=== PATIENT | female | born 1965 | race Asian ===

== ENCOUNTER 2023-12-13 07:55 | Inpatient (IN) | payer MEDICAID ==
[~2023-12-13] VITALS: Ht 157.5 cm; Wt 111.1 kg
[2023-12-13] VITALS (21 sets, daily range): BP systolic 105–122; BP diastolic 43–59; TEMP 97.2–98.2; O2SAT 100
[2023-12-13 08:29] LABS: BASOPHILS % (AUTO) 0.4 % (0.0-2.0); EOSINOPHILS # (AUTO) 0.1 K/uL (0.0-0.7); EOSINOPHILS % (AUTO) 1.6 % (0.0-6.0); HEMATOCRIT 29 % (33-45); HEMOGLOBIN 8.9 g/dL (11.5-14.8); LYMPHOCYTES # (AUTO) 1.5 K/uL (0.8-4.8); LYMPHOCYTES % (AUTO) 19.7 % (20.0-44.0); MEAN CORPUSCULAR HEMOGLOBIN 28 PG (26.0-33.0); MEAN CORPUSCULAR HGB CONC 31 g/dl (31.0-36.0); MEAN CORPUSCULAR VOLUME 91 fL (82-100); MONOCYTES # (AUTO) 0.7 K/uL (0.1-1.30); MONOCYTES % (AUTO) 9.4 % (2.0-12.0); NEUTROPHILS # (AUTO) 5.3 K/uL (1.8-8.9); NEUTROPHILS % (AUTO) 68.9 % (43.0-81.0); PLATELET COUNT (AUTO) 197 K/uL (150-450); RED BLOOD CELL COUNT(AUTO) 3.14 MIL/uL (4.0-5.2); RED CELL DISTRIBUTION WIDTH 15.1 % (11.5-15.0); WHITE BLOOD COUNT (AUTO) 7.7 K/uL (4.3-11.0)
[2023-12-13] MEDS ORDERED: methylPREDNISolone SOD SUCC 125 MG/2ML VIAL ONE (08:41)
[2023-12-13] MEDS: methylPREDNISolone SOD SUCC 125 MG/2ML VIAL IV ONE (08:44)
[2023-12-13] MEDS ORDERED: IPRATROPIUM NEB FS 0.5 MG/2.5 ML AMPUL.NEB ONE (08:44)
[2023-12-13] MEDS ORDERED: ALBUTEROL FS 2.5 MG/3 ML VIAL.NEB ONE (08:44)
[2023-12-13] MEDS: ALBUTEROL FS 2.5 MG/3 ML VIAL.NEB NEB ONE ×2 (08:45)
[2023-12-13] MEDS: IPRATROPIUM NEB FS 0.5 MG/2.5 ML AMPUL.NEB NEB ONE (08:45)
[2023-12-13 08:51] LABS: CALCIUM, SERUM 9.1 mg/dL (8.5-10.1); CARBON DIOXIDE 36 mmol/L (21-32); CHLORIDE 101 mmol/L (98-107); CREATININE 0.9 mg/dL (0.6-1.3); GLUCOSE 159 mg/dL (74-106); POTASSIUM 4.9 mmol/L (3.5-5.1); SODIUM SERUM 140 mmol/L (136-145); UREA NITROGEN, BLOOD 21 mg/dL (7-18)
[2023-12-13 08:56] LABS: ALANINE AMINOTRANSFERASE 19 U/L (12-78); ALBUMIN 2.8 g/dL (3.4-5.0); ALKALINE PHOSPHATASE 131 U/L (46-116); ASPARTATE AMINOTRANSFERASE 12 U/L (15-37); BILIRUBIN,DIRECT 0.1 mg/dL (0.0-0.2); BILIRUBIN,TOTAL 0.2 mg/dL (0.2-1.0); TOTAL PROTEIN, SERUM 6.9 g/dL (6.4-8.2)
[2023-12-13 08:57] LABS: LACTIC ACID 0.5 mmol/L (0.4-2.0)
[2023-12-13] MEDS: CEFTRIAXONE 1 G in IV D5W 50 ML IV ONE (09:01)
[2023-12-13 09:31] LABS: ABG BASE EXCESS 3.6 mmol/L; ABG OXYGEN SATURATION 88.5 % (92.0-98.5); ABG PCO2 78.2 mmHg (35.0-45.0); ABG PH 7.236 (7.350-7.450); ABG PO2 56.6 mmHg (75.0-100.0); ABG TOTAL HEMOGLOBIN 9.7 G/dL (12.0-16.0); COHb 0.2 % (0.5-1.5); MetHb 0.2 % (0.0-1.5); O2Hb 88.1 % (94.0-97.0); SITE, ABG Right Radial; VENT MODE, BG 5LPM NASAL CANNULA
[2023-12-13] MEDS ORDERED: FUROSEMIDE 20 MG/2 ML VIAL ONE (09:41)
[2023-12-13] MEDS: FUROSEMIDE 20 MG/2 ML VIAL IV ONE (09:47)
[2023-12-13] MEDS ORDERED: INSULIN REGULAR, HUMAN 100 UNIT/ML 3 ML VIAL SQ PRN (10:00)
[2023-12-13] MEDS ORDERED: ACETAMINOPHEN 325 MG TABLET PO PRN (10:00)
[2023-12-13] MEDS ORDERED: ONDANSETRON HCL/PF 4 MG/2 ML VIAL IVP PRN (10:00)
[2023-12-13] MEDS ORDERED: ZOLPIDEM TARTRATE 5 MG TABLET PO PRN (10:00)
[2023-12-13] MEDS ORDERED: DEXTROSE 50%-WATER 50 ML DISP.SYRIN IV PRN (10:00)
[2023-12-13] MEDS ORDERED: IPRATROPIUM NEB FS 0.5 MG/2.5 ML AMPUL.NEB NEB PRN (10:00)
[2023-12-13] MEDS ORDERED: MAG HYDROX/AL HYDROX/SIMETH 30 ML UDC PO PRN (10:00)
[2023-12-13] MEDS ORDERED: MAGNESIUM HYDROXIDE 30 ML UDC PO PRN (10:00)
[2023-12-13 11:05] LABS: ABG BASE EXCESS 3.2 mmol/L; ABG PCO2 81.7 mmHg (35.0-45.0); ABG PH 7.217 (7.350-7.450); ABG PO2 64.2 mmHg (75.0-100.0); ABG TOTAL HEMOGLOBIN 9.9 G/dL (12.0-16.0); MetHb 0.4 % (0.0-1.5); O2Hb 90.6 % (94.0-97.0); SITE, ABG Right Radial
[2023-12-13] MEDS ORDERED: ALBUTEROL FS 2.5 MG/0.5 ML VIAL.NEB ONE (12:51)
[2023-12-13] MEDS ORDERED: NOREPINEPHRINE 8 MG in IV D5W 242 ML IV PRN ×2 (14:00→15:00)
[2023-12-13] MEDS ORDERED: PROPOFOL 100 ML ONE (14:03)
[2023-12-13] MEDS: ALBUTEROL FS 2.5 MG/0.5 ML VIAL.NEB NEB SCH (14:15)
[2023-12-13] MEDS: methylPREDNISolone SOD SUCC 40 MG/ML VIAL IV SCH (16:09)
[2023-12-13 16:28] LABS: ABG BASE EXCESS 2.6 mmol/L; ABG PCO2 89.5 mmHg (35.0-45.0); ABG PO2 105.6 mmHg (75.0-100.0); ABG TOTAL HEMOGLOBIN 10.1 G/dL (12.0-16.0); COHb 0.3 % (0.5-1.5); MetHb 0.5 % (0.0-1.5); O2Hb 96.2 % (94.0-97.0); SITE, ABG Right Radial; VENT MODE, BG BIPAP 20/8 70% FIO2
[2023-12-13] MEDS: PROPOFOL 100 ML IV PRN (16:42)
[2023-12-13] MEDS: BLOOD SUGAR DIAGNOSTIC 1 EACH STRIP IN SCH (18:36)
[2023-12-13] MEDS: SODIUM BICARBONATE SYR 50 MEQ/50 ML DISP.SYRIN IV ONE (18:40)
[2023-12-13] MEDS: VANCOMYCIN HCL 1.25 GM in IV D5W 250 ML IV ONE (18:53)
[2023-12-13] MEDS ORDERED: CRAN425C6 PO (21:11)
[2023-12-13] MEDS ORDERED: INSU100V42 SQ (21:11)
[2023-12-13] MEDS ORDERED: MODAFINIL PO (21:11)
[2023-12-13] MEDS ORDERED: MULT-213 PO (21:11)
[2023-12-13] MEDS ORDERED: MAGN400O6 PO (21:11)
[2023-12-13] MEDS ORDERED: ATOR20TA PO (21:11)
[2023-12-13] MEDS ORDERED: DEXTROSE PO (21:11)
[2023-12-13] MEDS ORDERED: ALBU2.5V38 IH (21:11)
[2023-12-13] MEDS: CEFEPIME HCL 2 GM in IV D5W 100 ML IV SCH (21:11)
[2023-12-13] MEDS ORDERED: SENN-261 PO (21:11)
[2023-12-13] MEDS ORDERED: DOCU-141 PO (21:11)
[2023-12-13] MEDS ORDERED: ACET-868 PO (21:11)
[2023-12-13] MEDS ORDERED: HYDR-4076 PO (21:11)
[2023-12-13] MEDS ORDERED: ASCO-352 PO (21:11)
[2023-12-13] MEDS ORDERED: FURO40TA5 PO (21:11)
[2023-12-13] MEDS ORDERED: PANT40TA49 PO (21:11)
[2023-12-13] MEDS ORDERED: METF-440 PO (21:11)
[2023-12-13] MEDS ORDERED: FOLI0.4T6 PO (21:11)
[2023-12-13] MEDS ORDERED: GLUC1KIT IM (21:11)
[2023-12-13] MEDS ORDERED: ONDA-97 PO (21:11)
[2023-12-13] MEDS ORDERED: INSU100V7 SQ (21:11)
[2023-12-13] MEDS ORDERED: ACET-2605 PO (21:11)
[2023-12-13] MEDS ORDERED: ENOX40DI SQ (21:11)
[2023-12-13] MEDS ORDERED: ASPI-1169 PO (21:11)
[2023-12-13] MEDS ORDERED: FERR325T24 PO (21:11)
[2023-12-13] MEDS ORDERED: CHOL100043 PO (21:11)
[2023-12-13] MEDS ORDERED: BLOO-668 IN (21:11)
[2023-12-14] VITALS (64 sets, daily range): BP systolic 85–156; BP diastolic 24–122; TEMP 98.5–99.5; O2SAT 91–100
[2023-12-14 04:17] LABS: BASOPHILS % (AUTO) 0.1 % (0.0-2.0); EOSINOPHILS # (AUTO) 0.1 K/uL (0.0-0.7); EOSINOPHILS % (AUTO) 1.1 % (0.0-6.0); HEMATOCRIT 29 % (33-45); HEMOGLOBIN 9.1 g/dL (11.5-14.8); LYMPHOCYTES # (AUTO) 0.9 K/uL (0.8-4.8); LYMPHOCYTES % (AUTO) 10.2 % (20.0-44.0); MEAN CORPUSCULAR HEMOGLOBIN 29 PG (26.0-33.0); MEAN CORPUSCULAR HGB CONC 31 g/dl (31.0-36.0); MEAN CORPUSCULAR VOLUME 93 fL (82-100); MONOCYTES # (AUTO) 0.4 K/uL (0.1-1.30); MONOCYTES % (AUTO) 4.6 % (2.0-12.0); NEUTROPHILS # (AUTO) 7.4 K/uL (1.8-8.9); PLATELET COUNT (AUTO) 198 K/uL (150-450); RED BLOOD CELL COUNT(AUTO) 3.16 MIL/uL (4.0-5.2); RED CELL DISTRIBUTION WIDTH 15.4 % (11.5-15.0); WHITE BLOOD COUNT (AUTO) 8.9 K/uL (4.3-11.0)
[2023-12-14 04:25] LABS: CALCIUM, SERUM 9.1 mg/dL (8.5-10.1); CREATININE 1.2 mg/dL (0.6-1.3); PHOSPHORUS 3.3 mg/dL (2.5-4.9); POTASSIUM 4.5 mmol/L (3.5-5.1)
[2023-12-14 04:40] LABS: THYROID STIMULATING HORMONE 1.139 uIU/mL (0.358-3.74)
[2023-12-14 06:14] LABS: ABG OXYGEN SATURATION 96.6 % (92.0-98.5); ABG PH 7.486 (7.350-7.450); ABG PO2 82.5 mmHg (75.0-100.0); ABG TOTAL HEMOGLOBIN 9.7 G/dL (12.0-16.0); AaDO2 226.8 mmHg; MetHb 0.1 % (0.0-1.5); O2Hb 96.5 % (94.0-97.0); PEEP,BG 5 cm H2O; SITE, ABG Right Brachial; VT, ABG 450 mL
[2023-12-14] MEDS ORDERED: SUCCINYLCHOLINE CHLORIDE 20 MG/ML VIAL IV ONE (07:20)
[2023-12-14] MEDS ORDERED: ETOMIDATE 2 MG/ML VIAL IV ONE (07:20)
[2023-12-14] MEDS: VANCOMYCIN 1 GM in IV D5W 250ml IV SCH (08:00)
[2023-12-14] MEDS ORDERED: ACETAMINOPHEN 650 MG/SUPP.RECT RC PRN (08:30)
[2023-12-14] MEDS ORDERED: DEXTROSE 50%-WATER 50 ML DISP.SYRIN IV PRN ×2 (08:30→21:30)
[2023-12-14] MEDS: BLOOD SUGAR DIAGNOSTIC 1 EACH STRIP IN SCH ×2 (09:14→21:48)
[2023-12-14] MEDS: INSULIN REGULAR, HUMAN 100 UNIT/ML 3 ML VIAL SQ PRN ×2 (09:16→21:49)
[2023-12-14 09:46] LABS: ABG BASE EXCESS 4.8 mmol/L; ABG OXYGEN SATURATION 94.5 % (92.0-98.5); ABG PCO2 50.6 mmHg (35.0-45.0); ABG PH 7.398 (7.350-7.450); ABG PO2 76.2 mmHg (75.0-100.0); ABG TOTAL HEMOGLOBIN 10.3 G/dL (12.0-16.0); AaDO2 150.8 mmHg; COHb 0.3 % (0.5-1.5); MetHb 0.2 % (0.0-1.5); PEEP,BG 5 cm H2O; SITE, ABG Right Radial; VENT MODE, BG SIMV 4 / PS 15; VT, ABG 450 mL
[2023-12-14] MEDS: PANTOPRAZOLE 40 MG VIAL IV SCH (09:50)
[2023-12-14] MEDS: ENOXAPARIN SODIUM 40 MG/0.4 ML DISP.SYRIN SQ SCH (09:54)
[2023-12-14] MEDS ORDERED: DC PROPOFOL WHEN EXTUBATED XX PRN (10:00)
[2023-12-14] MEDS: CEFTRIAXONE 1 G in IV D5W 50 ML IV SCH (10:08)
[2023-12-14] MEDS: AZITHROMYCIN 500 MG in IV D5W 250 ML IV SCH (11:09)
[2023-12-14] MEDS: Z GUARD REMEDY 4 OZ OINT TP PRN (18:46)
[2023-12-15] VITALS (40 sets, daily range): BP systolic 119–171; BP diastolic 60–108; TEMP 97.8–98.5; O2SAT 91–100
[2023-12-15] MEDS: hydrALAZINE HCL IV 20 MG VIAL IV PRN (05:23)
[2023-12-15 06:54] LABS: BASOPHILS % (AUTO) 0.1 % (0.0-2.0); HEMATOCRIT 25 % (33-45); HEMOGLOBIN 8.1 g/dL (11.5-14.8); LYMPHOCYTES # (AUTO) 1.3 K/uL (0.8-4.8); LYMPHOCYTES % (AUTO) 14.5 % (20.0-44.0); MEAN CORPUSCULAR HEMOGLOBIN 29 PG (26.0-33.0); MEAN CORPUSCULAR HGB CONC 32 g/dl (31.0-36.0); MEAN CORPUSCULAR VOLUME 89 fL (82-100); MONOCYTES # (AUTO) 0.6 K/uL (0.1-1.30); NEUTROPHILS # (AUTO) 7.2 K/uL (1.8-8.9); NEUTROPHILS % (AUTO) 78.4 % (43.0-81.0); PLATELET COUNT (AUTO) 199 K/uL (150-450); RED BLOOD CELL COUNT(AUTO) 2.84 MIL/uL (4.0-5.2); WHITE BLOOD COUNT (AUTO) 9.2 K/uL (4.3-11.0)
[2023-12-15 07:08] LABS: CALCIUM, SERUM 8.7 mg/dL (8.5-10.1); CREATININE 1.1 mg/dL (0.6-1.3); POTASSIUM 4.5 mmol/L (3.5-5.1)
[2023-12-15] MEDS: PANTOPRAZOLE 40 MG TABLET.DR PO SCH (09:29)
[2023-12-15] MEDS: ENOXAPARIN SODIUM 40 MG/0.4 ML DISP.SYRIN SQ SCH (09:30)
[2023-12-15] MEDS: FUROSEMIDE 40 MG TABLET PO SCH (09:52)
[2023-12-15] MEDS: ASPIRIN 81 MG TAB.CHEW PO SCH (09:52)
[2023-12-15] MEDS: METFORMIN 500 MG TABLET PO SCH (09:52)
[2023-12-15] MEDS: hydrALAZINE HCL 25 MG TABLET PO SCH (09:53)
[2023-12-15] MEDS ORDERED: DEXTROSE 50%-WATER 50 ML DISP.SYRIN IV PRN (10:00)
[2023-12-15] MEDS: BLOOD SUGAR DIAGNOSTIC 1 EACH STRIP IN SCH (11:00)
[2023-12-15] MEDS: INSULIN REGULAR, HUMAN 100 UNIT/ML 3 ML VIAL SQ PRN (11:01)
[2023-12-15] MEDS: VANCOMYCIN 1 GM in IV D5W 250ml IV SCH (19:50)
[2023-12-15] MEDS: *INSULIN REGULAR(HUMULIN R)HUM 100 UNIT/ML VIAL SQ PRN (22:51)
[2023-12-16] VITALS (43 sets, daily range): BP systolic 119–177; BP diastolic 64–103; TEMP 98–98.8; O2SAT 91–100
[2023-12-16 06:17] LABS: BASOPHILS # (AUTO) 0.1 K/uL (0.0-0.2); HEMATOCRIT 26 % (33-45); HEMOGLOBIN 8.1 g/dL (11.5-14.8); LYMPHOCYTES # (AUTO) 1.6 K/uL (0.8-4.8); LYMPHOCYTES % (AUTO) 14.5 % (20.0-44.0); MEAN CORPUSCULAR HEMOGLOBIN 28 PG (26.0-33.0); MEAN CORPUSCULAR HGB CONC 32 g/dl (31.0-36.0); MEAN CORPUSCULAR VOLUME 89 fL (82-100); MONOCYTES # (AUTO) 0.9 K/uL (0.1-1.30); NEUTROPHILS # (AUTO) 8.4 K/uL (1.8-8.9); NEUTROPHILS % (AUTO) 76.5 % (43.0-81.0); PLATELET COUNT (AUTO) 211 K/uL (150-450); RED CELL DISTRIBUTION WIDTH 15.5 % (11.5-15.0)
[2023-12-16 06:56] LABS: IRON, SERUM 46 ug/dl (50-175); TOTAL IRON BINDING CAPACITY 213 ug/dl (250-450)
[2023-12-16 07:24] LABS: CALCIUM, SERUM 8.7 mg/dL (8.5-10.1); CREATININE 1.4 mg/dL (0.6-1.3); MAGNESIUM 2.1 mg/dL (1.8-2.4); PHOSPHORUS 4.4 mg/dL (2.5-4.9); POTASSIUM 4.3 mmol/L (3.5-5.1)
[2023-12-16] MEDS: PANTOPRAZOLE 40 MG TABLET.DR PO SCH (08:06)
[2023-12-16 08:20] LABS: FERRITIN 89 ng/mL (8-388)
[2023-12-16] MEDS: VANCOMYCIN 1 GM in IV D5W 250ml IV SCH (20:49)
[2023-12-17] VITALS (12 sets, daily range): BP systolic 100–166; BP diastolic 48–88; TEMP 98–98.2; O2SAT 94–100
[2023-12-17 06:50] LABS: BASOPHILS % (AUTO) 0.1 % (0.0-2.0); EOSINOPHILS % (AUTO) 0.2 % (0.0-6.0); HEMATOCRIT 26 % (33-45); HEMOGLOBIN 8.3 g/dL (11.5-14.8); LYMPHOCYTES # (AUTO) 3.1 K/uL (0.8-4.8); LYMPHOCYTES % (AUTO) 26.6 % (20.0-44.0); MEAN CORPUSCULAR HEMOGLOBIN 29 PG (26.0-33.0); MEAN CORPUSCULAR HGB CONC 32 g/dl (31.0-36.0); MEAN CORPUSCULAR VOLUME 90 fL (82-100); MONOCYTES % (AUTO) 8.6 % (2.0-12.0); NEUTROPHILS # (AUTO) 7.6 K/uL (1.8-8.9); NEUTROPHILS % (AUTO) 64.5 % (43.0-81.0); PLATELET COUNT (AUTO) 193 K/uL (150-450); RED BLOOD CELL COUNT(AUTO) 2.92 MIL/uL (4.0-5.2); RED CELL DISTRIBUTION WIDTH 15.3 % (11.5-15.0); WHITE BLOOD COUNT (AUTO) 11.8 K/uL (4.3-11.0)
[2023-12-17 07:50] LABS: CALCIUM, SERUM 8.8 mg/dL (8.5-10.1); CREATININE 1.3 mg/dL (0.6-1.3); MAGNESIUM 2.1 mg/dL (1.8-2.4); PHOSPHORUS 3.7 mg/dL (2.5-4.9)
[2023-12-17] MEDS: methylPREDNISolone SOD SUCC 40 MG/ML VIAL IV SCH (09:07)
[2023-12-17] MEDS: LACTULOSE 10 G/15 ML UDC (PYXIS) PO ONE (12:02)
[2023-12-18] VITALS (9 sets, daily range): BP systolic 134–152; BP diastolic 60–85; TEMP 98–98.6; O2SAT 96–100
[2023-12-18 05:55] LABS: BASOPHILS % (AUTO) 0.1 % (0.0-2.0); EOSINOPHILS # (AUTO) 0.1 K/uL (0.0-0.7); EOSINOPHILS % (AUTO) 0.8 % (0.0-6.0); HEMATOCRIT 28 % (33-45); HEMOGLOBIN 8.7 g/dL (11.5-14.8); LYMPHOCYTES # (AUTO) 4.6 K/uL (0.8-4.8); LYMPHOCYTES % (AUTO) 31.8 % (20.0-44.0); MEAN CORPUSCULAR HEMOGLOBIN 28 PG (26.0-33.0); MEAN CORPUSCULAR HGB CONC 31 g/dl (31.0-36.0); MEAN CORPUSCULAR VOLUME 90 fL (82-100); MONOCYTES # (AUTO) 1.2 K/uL (0.1-1.30); MONOCYTES % (AUTO) 8.5 % (2.0-12.0); NEUTROPHILS # (AUTO) 8.4 K/uL (1.8-8.9); NEUTROPHILS % (AUTO) 58.8 % (43.0-81.0); PLATELET COUNT (AUTO) 195 K/uL (150-450); RED CELL DISTRIBUTION WIDTH 15.1 % (11.5-15.0); WHITE BLOOD COUNT (AUTO) 14.4 K/uL (4.3-11.0)
[2023-12-18 06:11] LABS: PHOSPHORUS 3.8 mg/dL (2.5-4.9)
[2023-12-18 07:57] LABS: ABG BASE EXCESS 5.9 mmol/L; ABG OXYGEN SATURATION 92.2 % (92.0-98.5); ABG PCO2 59.7 mmHg (35.0-45.0); ABG PH 7.355 (7.350-7.450); ABG PO2 63.1 mmHg (75.0-100.0); ABG TOTAL HEMOGLOBIN 9.8 G/dL (12.0-16.0); COHb 0.3 % (0.5-1.5); MetHb 0.3 % (0.0-1.5); O2Hb 91.6 % (94.0-97.0); SITE, ABG Right Radial; VENT MODE, BG 1LNC
[2023-12-18] MEDS: AZITHROMYCIN 250 MG TABLET PO SCH (10:40)
[2023-12-18] MEDS ORDERED: LEVO500T90 PO (11:28)
[2023-12-18] MEDS ORDERED: METH4TAB17 PO (11:28)
== END 2023-12-18 15:57 | DRG 133 ==
LOC: ER 07:59 → ICU 13:51 → TELE-TD 12-16 18:14
PROVIDERS: ADMIT Nurse Practitioner Acute Care; ATTEND Nurse Practitioner Acute Care
PROC: 5A1935Z Respiratory Ventilation, Less than 24 Consecutive Hours (ICD-10-PCS; principal; 2023-12-13)
PROC: 0BH17EZ Insertion of Endotracheal Airway into Trachea, Via Natural or Artificial Opening (ICD-10-PCS; 2023-12-13)
PROC: 5A09357 Assistance with Respiratory Ventilation, Less than 24 Consecutive Hours, Continuous Positive Airway Pressure (ICD-10-PCS; 2023-12-13)
PROC: 05H633Z Insertion of Infusion Device into Left Subclavian Vein, Percutaneous Approach (ICD-10-PCS; 2023-12-14)
PROC: B547ZZA Ultrasonography of Left Subclavian Vein, Guidance (ICD-10-PCS; 2023-12-14)
PROC: 5A09457 Assistance with Respiratory Ventilation, 24-96 Consecutive Hours, Continuous Positive Airway Pressure (ICD-10-PCS; 2023-12-15)
DX: J96.21 Acute and chronic respiratory failure with hypoxia (principal); I50.33 Acute on chronic diastolic (congestive) heart failure; R53.2 Functional quadriplegia; N17.9 Acute kidney failure, unspecified; J44.0 Chronic obstructive pulmonary disease with (acute) lower respiratory infection; I13.0 Hypertensive heart and chronic kidney disease with heart failure and stage 1 through stage 4 chronic kidney disease, or unspecified chronic kidney disease; Z99.11 Dependence on respirator [ventilator] status; E11.22 Type 2 diabetes mellitus with diabetic chronic kidney disease; D63.1 Anemia in chronic kidney disease; J96.22 Acute and chronic respiratory failure with hypercapnia; J44.1 Chronic obstructive pulmonary disease with (acute) exacerbation; N18.9 Chronic kidney disease, unspecified; I25.10 Atherosclerotic heart disease of native coronary artery without angina pectoris; I25.2 Old myocardial infarction; K21.9 Gastro-esophageal reflux disease without esophagitis; I50.32 Chronic diastolic (congestive) heart failure; E66.2 Morbid (severe) obesity with alveolar hypoventilation; Z68.41 Body mass index [BMI] 40.0-44.9, adult; Z97.4 Presence of external hearing-aid; Z79.84 Long term (current) use of oral hypoglycemic drugs; Z20.822 Contact with and (suspected) exposure to COVID-19
CPT/HCPCS: 36415; 36600; 71045-TC; 80048-TC; 80061-TC; 80076-TC; 80202-TC; 82607-TC; 82728-TC; 82803-TC; 82962-TC; 83540-TC; 83605-TC; 83735-TC; 83880; 84100-TC; 84443-TC; 84484-TC; 85025-TC; 87040-TC; 93307-TC; 94002-TC; 94003-TC; 94799-TC; 97110-TC; 97116-TC; 97530-TC; A4223; A6403; C9113; G0378; J0330; J0360; J0456; J0692; J0696; J1650; J1815; J1940; J2920; J2930; J3370; J3490; J7050; J7060